=== PATIENT | male | born 1940 | race Caucasian/White ===

== ENCOUNTER → 2019-05-16 09:46 | Outpatient (BNVA) | payer MEDICARE, SELFPAY | PROVIDERS: PCP Family Medicine; Referring Provider Family Medicine; Visit Provider Surgery | DX: K40.20 Bilateral inguinal hernia, without obstruction or gangrene, not specified as recurrent (principal) | CPT/HCPCS: 99203; 99214 ==

== ENCOUNTER 2021-05-14 16:31 | Outpatient (REF) | payer MEDICARE, SELFPAY ==
[2021-05-15 13:53] LABS: COVID-19 RT-PCR UVMMC Result Negative (Negative)
== END 2021-05-14 16:32 | disposition home or self-care (01) ==
LOC: NCHCN 16:31
PROVIDERS: PCP Family Medicine; Visit Provider Family Medicine
DX: Z20.828 Contact with and (suspected) exposure to other viral communicable diseases (principal)
CPT/HCPCS: U0003; U0005

== ENCOUNTER → 2022-12-05 03:01 | Outpatient (CLI) | payer MEDICARE, SELFPAY ==
--- NOTE | 2022-12-05 07:22 | DI.RAD_ITS ---
Exam(s) XR LUMBAR SPINE COMPLETE EXAM: XR LUMBAR SPINE COMPLETE CLINICAL HISTORY: LEFT INGUINAL HERNIA K40.90 CHRONIC LOW BACK PAIN M54.59. TECHNIQUE: 2D digital imaging was performed. Five views. COMPARISON: CR CHEST 2 VIEWS PA,LAT from 09/12/2016 FINDINGS: BONES: No fracture or destructive lesion. Vertebral body heights are maintained. DISKS: Asymmetric disc space narrowing on the right at L3-4. Severe disc space narrowing and promine nt endplate osteophytes at L4-5 dominant facet joints at L5-S1. Mild L5-S1 spondylolisthesis. No sp ondylolysis. ALIGNMENT: Severe dextroscoliosis at the thoracolumbar junction. SOFT TISSUE: Normal. 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 Marked scoliosis. DATA REPOSITORY: RADIATION DOSE DELIVERED:
== END ==
PROVIDERS: PCP Family Medicine; Visit Provider Family Medicine
DX: M51.36 Other intervertebral disc degeneration, lumbar region (principal)
CPT/HCPCS: 72110

== ENCOUNTER → 2022-12-18 11:28 | Outpatient (BNVA) | payer MEDICARE, SELFPAY | PROVIDERS: PCP Family Medicine; Referring Provider Family Medicine; Visit Provider Surgery | DX: K40.20 Bilateral inguinal hernia, without obstruction or gangrene, not specified as recurrent (principal) | CPT/HCPCS: 99205 ==

== ENCOUNTER → 2023-04-13 09:32 | Outpatient (BNVA) | payer MEDICARE, SELFPAY | PROVIDERS: PCP Family Medicine; Referring Provider Family Medicine; Visit Provider Surgery | DX: K40.20 Bilateral inguinal hernia, without obstruction or gangrene, not specified as recurrent (principal) | CPT/HCPCS: 99213 ==